=== PATIENT | male | born 1975 ===

== ENCOUNTER 2018-04-09 10:45 | Emergency (ER) | payer OTHER ==
[2018-04-09 10:50] VITALS: TEMP 98.7; O2SAT 97
--- NOTE | 2018-04-09 11:43 | ED PDOC ---
HPI: Back Time Seen by Provider: 04/09/18 10:59 Chief Complaint (Nursing): Back Pain Chief Complaint (Provider): Foot pain, leg pain History Per: Patient History/Exam Limitations: no limitations Onset/Duration Of Symptoms: Days (x1 week) Additional Complaint(s): Eddi Armas, a 42 year old male with past medical history of psoriasis, presents to the emergency department with foot and leg pain with back pain onset 1 week. Patient denies trauma and states he has a tingling sensation in his hands and feet. Patient has been taking ibuprofen but denies taking any this morning. He denies a runny nose. No numbness, tingles, weakness, dysuria. No incontinence. PMD: None Past Medical History Reviewed: Historical Data, Nursing Documentation, Vital Signs Vital Signs: Last Vital Signs Temp 98.7 F 04/09/18 10:50 Pulse 104 H 04/09/18 10:50 Resp 19 04/09/18 10:50 BP 169/84 H 04/09/18 10:50 Pulse Ox 97 04/09/18 10:50 - Medical History Other PMH: psoriasis - Family History Family History: States: Unknown Family Hx - Social History Current smoker - smoking cessation education provided: No Alcohol: None Drugs: Denies - Home Medications Home Medications: Ambulatory Orders Medication Instructions Recorded Ibuprofen [Motrin] 600 mg PO TID 7 Days tab 04/09/18 - Allergies Allergies/Adverse Reactions: Allergies Allergy/AdvReac Type Severity Reaction Status Date / Time No Known Allergies Allergy Verified 04/09/18 11:07 Review of Systems ROS Statement: Except As Marked, All Systems Reviewed And Found Negative ENT: Negative for: Nose Discharge Respiratory: Negative for: Shortness of Breath Gastrointestinal: Negative for: Nausea, Vomiting, Abdominal Pain, Diarrhea Musculoskeletal: Positive for: Back Pain, Leg Pain, Foot Pain Physical Exam - Reviewed Nursing Documentation Reviewed: Yes Vital Signs Reviewed: Yes - Physical Exam Appears: Positive for: Non-toxic, No Acute Distress Head Exam: Positive for: ATRAUMATIC, NORMAL INSPECTION, NORMOCEPHALIC Skin: Positive for: Warm Eye Exam: Positive for: EOMI, Normal appearance, PERRL ENT: Positive for: Normal ENT Inspection Neck: Positive for: Normal, Painless ROM Cardiovascular/Chest: Positive for: Regular Rate, Rhythm, Other (psoriatic spot s) Respiratory: Positive for: Normal Breath Sounds. Negative for: Respiratory Distress Gastrointestinal/Abdominal: Positive for: Normal Exam, Soft. Negative for: Tenderness Back: Positive for: Vertebral Tenderness (mild, sacral area), Other (psoriatic scaly nontender non erythematous patches) Extremity: Positive for: Normal ROM, Other (straight leg test positive at 45 degrees bilateral, diffuse psoriatic patches on legs). Negative for: Tenderness, Pedal Edema Neurologic/Psych: Positive for: Alert, Oriented (x3) Comments: psoriatic patches on upper scalp, all psoriatic patches are non tender with no induration and no discharge, non blanching - ECG O2 Sat by Pulse Oximetry: 97 (RA) Pulse Ox Interpretation: Normal - Radiology X-Ray: Interpreted by Me, Viewed By Me X-Ray Interpretation: No Acute Disease - Progress ED Course And Treament: 1330: Pt. pain free. Tolerated po. AAOx3. FU pcp. Medical Decision Making Medical Decision Making: Time: 10:59 Initial Impression: Initial Plan: --Urine Dip --Lumbar spine complete --Toradol 15 mg IM --Glucose, blood, POC Scribe Attestation: Documented by Emilee Callejas, acting as a scribe for Jose Elias Knight MD. Provider Scribe Attestation: All medical record entries made by the Scribe were at my direction and personally dictated by me. I have reviewed the chart and agree that the record accurately reflects my personal performance of the history, physical exam, medical decision making, and the department course for this patient. I have also personally directed, reviewed, and agree with the discharge instructions and disposition. Disposition - Clinical Impression Clinical Impression: Back pain - Disposition Referrals: [facility] [Outside] - 04/10/18 Disposition: Routine/Home Disposition Time: 13:32 Condition: STABLE Additional Instructions: Return if not better in 3 days. Prescriptions: Ibuprofen [Motrin] 600 mg PO TID 7 Days tab Instructions: Low Back Pain in Adults Print Language: ROMANIAN
[2018-04-09 13:56] VITALS: BP 130/83; PULSE 90; RESP 16
--- NOTE | 2018-04-09 15:26 | RAD ---
Date of service: 04/09/2018 PROCEDURE: Radiographs of the Lumbar Spine. HISTORY: back pain COMPARISON: No prior. FINDINGS: BONES: Normal alignment. No listhesis. No fracture. DISC SPACES: Minimal multilevel degenerative spondylosis.. Disc space heights are relatively maintained however small marginal osteophytes are seen at several levels.. OTHER FINDINGS: None. IMPRESSION: No acute fractures. Very minor multilevel degenerative spondylosis.
== END 2018-04-09 13:58 | disposition home or self-care (01) ==
LOC: H.ER 10:45
DX: M54.9 Dorsalgia, unspecified (principal)
CPT/HCPCS: 72114; 82948; 96372; 99284; J1885